=== PATIENT | female | born 1970 | race Hispanic/Latino ===

== ENCOUNTER 2016-12-05 11:00 | Outpatient (CLI) | payer BC, MEDICARE | END 2016-12-05 11:01 | disposition home or self-care (01) | LOC: SLR 11:00 | PROVIDERS: ATTEND Specialist | DX: G47.30 Sleep apnea, unspecified (principal); R40.0 Somnolence; E66.9 Obesity, unspecified | CPT/HCPCS: 95810 ==

== ENCOUNTER 2016-12-26 11:00 | Outpatient (CLI) | payer BC, MEDICARE | END 2016-12-26 11:01 | disposition home or self-care (01) | LOC: SLR 11:00 | PROVIDERS: ATTEND Specialist | DX: G47.33 Obstructive sleep apnea (adult) (pediatric) (principal) | CPT/HCPCS: 95811 ==